=== PATIENT | female | born 1990 | race Caucasian/White ===

== ENCOUNTER 2018-09-24 09:34 | Observation (INO) | payer BC, OTHER ==
[2018-09-24 10:14] LABS: Appearance SLIGHTLY CLOUDY (CLEAR); Bilirubin NEGATIVE (NEGATIVE); Blood NEGATIVE Ery/ul (0-5); Glucose NEGATIVE (NEGATIVE); Ketones NEGATIVE (NEGATIVE); Leukocyte Esterase SMALL (NEGATIVE); Nitrite NEGATIVE (NEGATIVE); Protein,Urine Dip 30 (Negative); Specific Gravity 1.025 (1.005-1.025); Urobilinogen 2 mg/dL (0-1)
[2018-09-24 10:18] VITALS: BP 122/74; PULSE 108
[2018-09-24] MEDS ORDERED: TYLENOL 325 MG PO PRN (10:57)
[2018-09-24] MEDS ORDERED: Lactated Ringers 1,000 ML IV ONE (10:57)
== END 2018-09-24 13:30 | disposition home or self-care (01) ==
LOC: OB 09:34
PROVIDERS: ADMIT Family Medicine; ATTEND Family Medicine
DX: Z34.83 Encounter for supervision of other normal pregnancy, third trimester (principal)
CPT/HCPCS: 81001; 87086; G0378; A9270-GY

== ENCOUNTER 2018-10-16 21:42 | Observation (INO) | payer OTHER ==
[2018-10-16 22:09] LABS: Appearance CLEAR (CLEAR); Bilirubin NEGATIVE (NEGATIVE); Blood NEGATIVE Ery/ul (0-5); Glucose NEGATIVE (NEGATIVE); Ketones NEGATIVE (NEGATIVE); Leukocyte Esterase TRACE (NEGATIVE); Nitrite NEGATIVE (NEGATIVE); Protein,Urine Dip NEGATIVE (Negative); Specific Gravity 1.004 (1.005-1.025); Urobilinogen NEGATIVE mg/dL (0-1)
[2018-10-16 23:35] VITALS: BP 107/69; PULSE 82
== END 2018-10-16 23:20 | disposition home or self-care (01) ==
LOC: OB 21:42
PROVIDERS: ADMIT Family Medicine; ATTEND Family Medicine
DX: Z34.03 Encounter for supervision of normal first pregnancy, third trimester (principal)
CPT/HCPCS: 81001; G0378

== ENCOUNTER 2018-11-10 15:21 | Inpatient (IN) | payer OTHER ==
[2018-11-10 15:58] LABS: Appearance CLEAR (CLEAR); Bilirubin NEGATIVE (NEGATIVE); Blood NEGATIVE Ery/ul (0-5); Glucose NEGATIVE (NEGATIVE); Ketones NEGATIVE (NEGATIVE); Leukocyte Esterase NEGATIVE (NEGATIVE); Nitrite NEGATIVE (NEGATIVE); Protein,Urine Dip NEGATIVE (Negative); Specific Gravity 1.002 (1.005-1.025); Urobilinogen NEGATIVE mg/dL (0-1)
[2018-11-10] MEDS ORDERED: Lactated Ringers 1,000 ML IV ONE ×2 (16:21→17:33)
[2018-11-10 16:46] LABS: BASOPHIL % 0.2 % (0.0-0.4); Basophil (Absolute #) 0.02 (0-0.4); Eosinophil % 1.3 % (0.00-5.0); Eosinophil (Absolute #) 0.13 (0-0.5); Granulocyte Absolute (ANC) 7.89 (1.4-6.9); Granulocytes % 77.4 % (36.0-66.0); Hematocrit 33.8 % (35-47); Lymphocyte (Absolute #) 1.39 (1.0-4.6); Lymphocytes % 13.6 % (24.0-44.0); Mean Cell Volume 92.9 fl (78-100); Mean Corpuscular Hemoglobin 30.2 pg (26-32); Mean Corpuscular Hgb Concent. 32.5 g/dl (32-36); Mean Platelet Volume 9.2 fl (6-9.5); Monocyte (Absolute #) 0.76 (0.0-1.3); Monocytes % 7.5 % (0.0-12.0); Platelet Count 177 K/mm3 (150-450); Red Blood Count 3.64 M/mm3 (4.1-5.4); Red Cell Distribution Width 14.8 % (11.5-14.0); White Blood Count 10.2 K/mm3 (4.0-10.5)
[2018-11-10 17:16] LABS: ALBUMIN 3.5 g/dL (3.5-5.0); ALKALINE PHOSPHATASE 104 U/L (38-126); ANION GAP 11.5 MEQ/L (5-15); BLOOD UREA NITROGEN 5 mg/dL (7-17); CHLORIDE 106 mmol/L (98-107); Carbon Dioxide 25 mmol/L (22-30); Glucose 75 mg/dL (74-106); Potassium 3.8 mmol/L (3.5-5.1); SGOT/AST 22 U/L (14-36); SGPT/ALT 15 U/L (0-35); SODIUM 139 mmol/L (137-145); Total Protein 6.5 g/dL (6.3-8.2)
[2018-11-10] MEDS: Lactated Ringers 1,000 ML IV SCH (17:37)
[2018-11-10] MEDS ORDERED: TYLENOL 325 MG PO ONE (20:50)
[2018-11-11] MEDS ORDERED: Lactated Ringers 1,000 ML IV ONE ×3 (00:48→09:49)
[2018-11-11] MEDS: Lactated Ringers 1,000 ML IV SCH ×3 (00:50→09:48)
[2018-11-11] MEDS ORDERED: Reglan 10 MG/2 ML IV SCH (09:15)
[2018-11-11] MEDS ORDERED: Pepcid 20 MG VIAL IV SCH (09:15)
[2018-11-11] MEDS ORDERED: BICITRA 30 ML CUP PO SCH (09:15)
[2018-11-11 09:28] LABS: Mean Cell Volume 93.7 fl (78-100); Mean Corpuscular Hemoglobin 30.3 pg (26-32); Mean Corpuscular Hgb Concent. 32.4 g/dl (32-36); Mean Platelet Volume 9.2 fl (6-9.5); Platelet Count 158 K/mm3 (150-450); Red Blood Count 3.63 M/mm3 (4.1-5.4); Red Cell Distribution Width 14.8 % (11.5-14.0); White Blood Count 7.6 K/mm3 (4.0-10.5)
[2018-11-11] MEDS ORDERED: CEFAZOLIN 2 GM-D5W BAG** 2 GM/50 ML ML IV SCH (09:30)
[2018-11-11 09:44] LABS: INR 1.06 (0.8-3.0)
[2018-11-11 09:47] LABS: PTT 24.7 SECONDS (25.3-37.0)
[2018-11-11 09:58] LABS: Appearance CLEAR (CLEAR); Bilirubin NEGATIVE (NEGATIVE); Blood NEGATIVE Ery/ul (0-5); Glucose NEGATIVE (NEGATIVE); Ketones NEGATIVE (NEGATIVE); Leukocyte Esterase LARGE (NEGATIVE); Nitrite NEGATIVE (NEGATIVE); Protein,Urine Dip NEGATIVE (Negative); Specific Gravity 1.008 (1.005-1.025); Urobilinogen NEGATIVE mg/dL (0-1)
[2018-11-11 10:24] LABS: Amphetamine,Urine NEGATIVE (NEGATIVE); Barbiturate,Urine NEGATIVE (NEGATIVE); Benzodiazepine,Urine NEGATIVE (NEGATIVE); Cocaine,Urine NEGATIVE (NEGATIVE); Methadone,Urine NEGATIVE (NEGATIVE); Opiate,Urine NEGATIVE (NEGATIVE); PCP,Urine NEGATIVE (NEGATIVE); THC,Urine NEGATIVE (NEGATIVE)
--- NOTE | 2018-11-11 11:53 | OP ---
SURGERY DATE/TIME: 11/11/2018 1024 PREOPERATIVE DIAGNOSES: 1) Term intrauterine . 2) History of prior section. 3) Nonreassuring heart tones. POSTOPERATIVE DIAGNOSES: 1) Term intrauterine . 2) History of prior section. 3) Nonreassuring heart tones. PROCEDURE: Repeat low transverse section. SURGEON: Matt Hyatt M.D. ANESTHESIA: Spinal by Allan Villalta CRNA. ESTIMATED BLOOD LOSS: 400 cc. IV FLUIDS: 1400 cc of crystalloid. URINE OUTPUT: 100 cc of clear straw-colored urine. SPECIMENS: None. DESCRIPTION OF PROCEDURE: After informed written consent was obtained, the patient was taken to the operating room. She underwent spinal anesthesia and was prepped and draped in the usual sterile fashion. After adequate level of anesthesia was assessed, a low transverse skin incision was made by knife the area of prior scar to the level of the subcutaneous fat to the level of the fascia. Fascia was nicked on both sides of the midline and extended in horizontal fashion using curved Liu scissors. The superior free edge of the fascia was grasped with Obduilo clamps and the underlying rectus muscles were dissected free. The same was repeated inferiorly. The peritoneal cavity was opened and extended in horizontal fashion. Bladder blade was inserted and the bladder flap was created and reflected over the lower uterine segment. A horizontal uterine incision was made by knife and carried down to the level of the amniotic membranes which were carefully artificially ruptured. A viable female infant with a strong cry immediately upon delivery was delivered from the vertex presentation. Oropharynx and nares were bulb suctioned free. The cord was clamped and cut and she was handed off to the awaiting nursery team. The placenta was manually extracted from the uterine cavity. The uterus was exteriorized. The uterine cavity was sponge curetted clean with lap sponge. The uterine incision was closed with #1 chromic in a running locked fashion. Good closure and good hemostasis were achieved. The posterior cul-de-sac was wiped free of blood and clot and the uterus was returned to the peritoneal cavity. Lateral gutters were wiped free of blood and clot. Again, the uterine incision was inspected and noted to be hemostatic with good closure. Next, the fascia was closed with 0 Vicryl in a running fashion with good closure. Good hemostasis were achieved. The subcutaneous fat was irrigated with warm, sterile saline. Any areas of bleeding were cauterized with electrocautery. Finally the skin layer was closed with 4-0 undyed Vicryl in a running subcuticular fashion. Steri-Strips and occlusive dressing were placed over the incision. The patient was transferred to the recovery in good condition.
[2018-11-11] MEDS ORDERED: Sodium Chloride 0.9% 10 ML FLUSH Syringe IJ PRN (12:00)
[2018-11-11] MEDS ORDERED: Zofran 4 MG/2 ML VIAL IV PRN (12:00)
[2018-11-11] MEDS ORDERED: BENADRYL 50 MG/ML IV PRN (12:00)
[2018-11-11] MEDS ORDERED: Nubain 10 MG/ML IV PRN (12:00)
[2018-11-11] MEDS ORDERED: DEMEROL 50 MG IV PRN (12:00)
[2018-11-11] MEDS ORDERED: MORPHINE SULFATE 2 MG INJ IV PRN (12:00)
[2018-11-11] MEDS ORDERED: TYLENOL EXTRA STRENGTH 500 MG PO PRN (12:00)
[2018-11-11] MEDS ORDERED: CORTISONE 1% CREAM TP PRN (12:00)
[2018-11-11] MEDS ORDERED: HOLD NARCOTIC ANALGESICS AND SEDATIVES X24 HR MC PRN (12:00)
[2018-11-11] MEDS ORDERED: CLARITIN 10 MG PO PRN (12:00)
[2018-11-11] MEDS ORDERED: Anucort-HC SUPPOSITORY PR PRN (12:00)
[2018-11-11] MEDS ORDERED: Dulcolax 10 MG SUPP PR PRN (12:00)
[2018-11-11] MEDS ORDERED: Restoril 15 MG PO PRN (12:00)
[2018-11-11] MEDS ORDERED: Ambien 10 MG PO PRN (12:00)
[2018-11-11] MEDS ORDERED: Narcan 0.4 MG/ML IV PRN (12:00)
[2018-11-11] MEDS: Dextrose 5%-Lr IV Solution 1000 ML 1,000 ML IV SCH ×2 (13:28→20:45)
[2018-11-11] MEDS ORDERED: PHENYLEPHRINE HCL IV ONE (14:10)
[2018-11-11] MEDS ORDERED: Pitocin 10 UNITS/ML IV ONE (14:10)
[2018-11-11] MEDS ORDERED: Zofran 4 MG/2 ML VIAL IV ONE (14:10)
[2018-11-11] MEDS ORDERED: Robinul 0.4 MG/2 ML IV ONE (14:10)
[2018-11-11] MEDS ORDERED: Marcaine Spinal Ampul IJ ONE (14:10)
[2018-11-11] MEDS ORDERED: Astramorph-Pf 5 MG/10 ML IV ONE (14:10)
[2018-11-11] MEDS ORDERED: Xylocaine-Mpf 2% 5 Ml Vial IJ ONE (14:10)
[2018-11-11] MEDS ORDERED: TORAdol 30 mg Injection IV ONE (14:10)
[2018-11-11 14:52] LABS: Appearance CLEAR (CLEAR); Bilirubin NEGATIVE (NEGATIVE); Blood NEGATIVE Ery/ul (0-5); Glucose NEGATIVE (NEGATIVE); Ketones NEGATIVE (NEGATIVE); Leukocyte Esterase NEGATIVE (NEGATIVE); Nitrite NEGATIVE (NEGATIVE); Protein,Urine Dip NEGATIVE (Negative); Specific Gravity 1.013 (1.005-1.025); Urobilinogen 2 mg/dL (0-1)
[2018-11-11] MEDS: MOTRIN 400 MG PO PRN (19:42)
[2018-11-11] MEDS: Colace 100 MG PO SCH (22:01)
[2018-11-11] MEDS: PERCOCET TABLET 5/325MG PO PRN (22:02)
[2018-11-12] MEDS: MOTRIN 400 MG PO PRN ×3 (02:40→19:37)
[2018-11-12] MEDS: PERCOCET TABLET 5/325MG PO PRN ×2 (04:48→09:14)
[2018-11-12] MEDS: Mylicon 80MG PO PRN ×2 (04:52→16:07)
[2018-11-12 06:04] LABS: BASOPHIL % 0.1 % (0.0-0.4); Basophil (Absolute #) 0.01 (0-0.4); Eosinophil % 0.9 % (0.00-5.0); Eosinophil (Absolute #) 0.09 (0-0.5); Granulocyte Absolute (ANC) 7.84 (1.4-6.9); Granulocytes % 77.2 % (36.0-66.0); Hematocrit 31.2 % (35-47); Lymphocyte (Absolute #) 1.59 (1.0-4.6); Lymphocytes % 15.6 % (24.0-44.0); Mean Cell Volume 94.3 fl (78-100); Mean Corpuscular Hemoglobin 30.2 pg (26-32); Mean Corpuscular Hgb Concent. 32.1 g/dl (32-36); Mean Platelet Volume 9.2 fl (6-9.5); Monocyte (Absolute #) 0.63 (0.0-1.3); Monocytes % 6.2 % (0.0-12.0); Platelet Count 168 K/mm3 (150-450); Red Blood Count 3.31 M/mm3 (4.1-5.4); Red Cell Distribution Width 14.5 % (11.5-14.0); White Blood Count 10.2 K/mm3 (4.0-10.5)
[2018-11-12 08:59] VITALS: O2SAT 100
[2018-11-12] MEDS: FEOSOL 325 MG PO SCH (09:15)
[2018-11-12] MEDS: Colace 100 MG PO SCH ×2 (09:15→23:28)
[2018-11-12] MEDS ORDERED: FERREX 150 PO SCH (10:00)
[2018-11-12] MEDS: NORCO 5/325 MG PO PRN ×2 (16:07→23:28)
[2018-11-13] MEDS: Mylicon 80MG PO PRN (00:21)
[2018-11-13] MEDS: MOTRIN 400 MG PO PRN (02:13)
--- NOTE | 2018-11-13 07:56 | PCM.DS ---
Discharge Summary Date of Admission: 11/11/18 09:09 Admitting Physician: CAROLYN KENDRICK Consults: Consults on Case 11/11/18 09:11 Notify Anesthesia Provider ROUTINE Primary Care Provider: CAROLYN KENDRICK Allergies Allergies No Known Drug Allergies Allergy (Verified 11/10/18 15:32) Hospital Summary - Hospital Course Hospital Course: patient had repeat on 11/11 with no complications, doing well pp. mild lochia, pain controlled, ambulating and tolerating po. well bonded with female - Vitals & Intake/Output Vital Signs: Vital Signs Temperature 97.7 F 11/13/18 02:30 Pulse Rate 88 11/13/18 02:30 Respiratory Rate 18 11/13/18 02:30 Blood Pressure 140/71 11/13/18 02:30 O2 Sat by Pulse Oximetry 100 11/12/18 08:00 Intake & Output: Intake & Output 11/10/18 11/11/18 11/12/18 11/13/18 11:59 11:59 11:59 11:59 Intake Total 1060 1400 Output Total 1150 Balance -90 1400 Weight 96.162 kg - Lab Result Diagrams: 11/12/18 05:30 11/10/18 16:41 Micro Results-Entire Visit: Microbiology 11/11/18 10:36 Urine Culture - Final Catherized NO GROWTH - Procedures and Test Procedures and Tests throughout Hospitalization: Therapy Orders & Screens 11/11/18 14:42 Standby Routine Comment: Diagnosis: Discharge Exam General Appearance: no apparent distress, alert Skin Exam: normal color, warm, dry Respiratory Exam: normal breath sounds, lungs clear, No respiratory distress Cardiovascular Exam: regular rate/rhythm, normal heart sounds Gastrointestinal/Abdomen Exam: soft, other (incision c/d/i, well approximated), No tenderness, No mass Final Diagnosis/Problem List - Final Discharge Diagnosis/Problem (1) delivery delivered Current Visit: Yes Status: Acute - Discharge Disposition: Home, Self-Care Condition: Stable Prescriptions: New Hydrocodone Bit/Acetaminophen [[place] 5-325 Tablet] 1 each PO Q6H PRN PRN #28 tablet MDD 4 PRN Reason: Pain Continue Ferrous Sulfate 1 tablet PO DAILY Follow up with: CAROLYN KENDRICK MD [Primary Care Provider] - 1 Week
[2018-11-13] MEDS: Colace 100 MG PO SCH (08:42)
[2018-11-13] MEDS: NORCO 5/325 MG PO PRN (08:42)
[2018-11-13] MEDS: FEOSOL 325 MG PO SCH (08:42)
[2018-11-13 10:21] VITALS: BP 132/73; PULSE 105
== END 2018-11-13 10:00 | disposition home or self-care (01) | DRG 788 ==
LOC: OB 15:21 → OBSVTOIN 11-11 09:09 → MED SURG 11-12 16:15
PROVIDERS: ADMIT Family Medicine; ATTEND Family Medicine
PROC: 10D00Z1 Extraction of Products of Conception, Low, Open Approach (ICD-10-PCS; principal; 2018-11-11)
DX: O76 Abnormality in fetal heart rate and rhythm complicating labor and delivery (principal); Z3A.38 38 weeks gestation of pregnancy; Z37.0 Single live birth
CPT/HCPCS: 36415; 62322; 64488; 76937; 76942; 80053; 80307; 81001; 85025; 85027; 85610; 85730; 86900; 86901; 87086; 94799; G0378; J0690; J1885; J2274; J2370; J2405; J2590; L0625; A9270-GY

== ENCOUNTER 2019-07-03 19:44 | Emergency (ER) | payer OTHER | END 2019-07-03 20:59 | disposition home or self-care (01) | LOC: ED 19:44 ==

== ENCOUNTER 2023-07-10 22:24 | Emergency (ER) | payer OTHER ==
[2023-07-10 23:35] VITALS: BP 136/77; PULSE 78; RESP 16; TEMP 98.5; O2SAT 99
[2023-07-10] MEDS ORDERED: TETRACAINE 0.5% STERI-UNIT SOL OP ONE (23:37)
[2023-07-10] MEDS ORDERED: Eye-Stream Solution ONE (23:38)
[2023-07-10] MEDS ORDERED: Fluor-I-Strip/Ful-Flo OP ONE (23:38)
[2023-07-10] MEDS ORDERED: Ocuflox OPHTHALMIC 5 ML OP STA (23:46)
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
[2023-07-11] MEDS ORDERED: Ocuflox OPHTHALMIC 5 ML OP ONE
[2023-07-11] MEDS ORDERED: Eye-Stream Solution OP ONE (00:06)
[2023-07-11] MEDS ORDERED: Fluor-I-Strip/Ful-Flo OP ONE (00:07)
[2023-07-11] MEDS ORDERED: TETRACAINE 0.5% STERI-UNIT SOL OP STA (00:07)
== END 2023-07-11 00:10 | disposition home or self-care (01) ==
LOC: ED 22:24
DX: H10.31 Unspecified acute conjunctivitis, right eye (principal); H57.89 Other specified disorders of eye and adnexa; Z79.899 Other long term (current) drug therapy; Z28.310 Unvaccinated for COVID-19
CPT/HCPCS: 99281; A9270-GY